=== PATIENT | female | born 1960 | race Caucasian/White ===

== ENCOUNTER 2022-01-13 11:58 | Inpatient (IN) | payer MEDICARE, OTHER ==
[~2022-01-13] VITALS: Ht 165.1 cm; Wt 94.3 kg
[2022-01-13] MEDS ORDERED: FAMOTIDINE40 MG PO (16:09)
[2022-01-13] MEDS ORDERED: AMITRIPTYLINE H25 MG PO (16:09)
[2022-01-13] MEDS ORDERED: GABAPENTIN100 MG PO (16:09)
[2022-01-13] MEDS ORDERED: ATORVASTATIN CA80 MG PO (16:09)
[2022-01-13] MEDS ORDERED: PROTONIX 40 MG40 M1 PO (16:10)
[2022-01-13] MEDS ORDERED: FUROSEMIDE80 MG PO (16:10)
[2022-01-13] MEDS ORDERED: DULOXETINE HCL30 MG PO (16:10)
[2022-01-13] MEDS ORDERED: POTASSIUM CHLO20 ME2 PO (16:10)
[2022-01-13] MEDS ORDERED: XARELTO20 MG PO (16:11)
[2022-01-13] MEDS ORDERED: NITROGLYCERIN0.4 MG SL (16:11)
[2022-01-13] MEDS ORDERED: METOPROLOL SUC100 MG PO (16:11)
[2022-01-13] MEDS ORDERED: FLUOXETINE HCL40 MG PO (16:11)
[2022-01-13] MEDS ORDERED: ASPIRIN EC81 MG PO (16:12)
[2022-01-13] MEDS ORDERED: MECLIZINE HCL25 MG PO (16:12)
[2022-01-13 16:19] LABS: HEMOGLOBIN 13.3 gm/dl (12.3-15.3); RED BLOOD COUNT 5.4 M/UL (4.00-5.10); WHITE BLOOD COUNT 10.8 K/UL (4.5-11.0)
[2022-01-14 07:28] LABS: HEMOGLOBIN 11.9 gm/dl (12.3-15.3); RED BLOOD COUNT 4.95 M/UL (4.00-5.10); WHITE BLOOD COUNT 9.4 K/UL (4.5-11.0)
[2022-01-14 16:32] LABS: HEMOGLOBIN 10.2 gm/dl (12.3-15.3)
[2022-01-14 16:37] LABS: RED BLOOD COUNT 4.18 M/UL (4.00-5.10); WHITE BLOOD COUNT 14.1 K/UL (4.5-11.0)
[2022-01-15 05:24] LABS: WHITE BLOOD COUNT 12.3 K/UL (4.5-11.0)
[2022-01-15 05:31] LABS: HEMOGLOBIN 7.7 gm/dl (12.3-15.3); RED BLOOD COUNT 3.12 M/UL (4.00-5.10)
[2022-01-15 05:43] LABS: BUN/CREATININE RATIO 22 (0-10)
--- NOTE | 2022-01-15 14:21 | NUR ---
PT SITTING IN CHAIR PER PT. REQUESTS TO RETURN TO BED AND ATTEMPTED TO GET OUT OF CHAIR INDEPENDENTLY. DISTANCE EDUCATION FACULTY LIAISON INSTRUCTED PT TO WAIT FOR ASST AND PLACED WALKER IN FRONT OF PT. PT STOOD WITH ASST OF DISTANCE EDUCATION FACULTY LIAISON AND WALKER THEN C/O DIZZINESS AND WAS SLID TO FLOOR BY DISTANCE EDUCATION FACULTY LIAISON. [place] [facility] [place] [place]OM, GAIT BELT APPLIED AND PT ASST FROM SITTING POSITION IN FLOOR TO THE CHAIR. PT THEN TRANSFERRED FROM CHAIR TO BED WITH GAIT BELT. PT ALERT AND ORIENTED AND STATED THAT SHE HAS HAD MULTIPLE EPISODES OF DIZZINESS AT HOME. DENIES ANY PAIN OR DISCOMFORT AT PRESENT. NOTIFIED. V/S - HR 76, R 18, O2 SAT ON R/A 94%. B/P 108/45.
[2022-01-16 04:52] LABS: RED BLOOD COUNT 3.07 M/UL (4.00-5.10); WHITE BLOOD COUNT 11.3 K/UL (4.5-11.0)
[2022-01-16 05:12] LABS: BUN/CREATININE RATIO 22 (0-10)
[2022-01-17 05:17] LABS: RED BLOOD COUNT 2.99 M/UL (4.00-5.10); WHITE BLOOD COUNT 9.5 K/UL (4.5-11.0)
[2022-01-17 05:31] LABS: BUN/CREATININE RATIO 20 (0-10)
[2022-01-18 03:52] LABS: HEMOGLOBIN 7.8 gm/dl (12.3-15.3); RED BLOOD COUNT 2.98 M/UL (4.00-5.10); WHITE BLOOD COUNT 8.6 K/UL (4.5-11.0)
[2022-01-18 04:15] LABS: BUN/CREATININE RATIO 23 (0-10)
[2022-01-19 03:12] LABS: BUN/CREATININE RATIO 19 (0-10)
[2022-01-19 03:39] LABS: HEMOGLOBIN 7.6 gm/dl (12.3-15.3); RED BLOOD COUNT 2.95 M/UL (4.00-5.10); WHITE BLOOD COUNT 8.3 K/UL (4.5-11.0)
[2022-01-20 04:52] LABS: HEMOGLOBIN 8.1 gm/dl (12.3-15.3); RED BLOOD COUNT 3.08 M/UL (4.00-5.10); WHITE BLOOD COUNT 8.5 K/UL (4.5-11.0)
[2022-01-20] MEDS ORDERED: ROXICODONE TAB 55 MG PO (12:26)
[2022-01-20] MEDS ORDERED: STIMULANT LAXA1 EACH PO (12:26)
[2022-01-20] MEDS ORDERED: ATORVASTATIN CA20 MG PO (12:26)
[2022-01-20] MEDS ORDERED: POLYETHYLENE GL17 GM PO (12:26)
[2022-01-20] MEDS ORDERED: IPRAT-ALBUT 0.5-3 ML NEB (12:26)
[2022-01-20] MEDS ORDERED: ACETAMINOPHEN500 MG PO (12:26)
[2022-01-20] MEDS ORDERED: GABAPENTIN300 MG PO (12:26)
[2022-01-20] MEDS ORDERED: HUMALOG 10100 UNITS/ SC (12:37)
[2022-01-20] MEDS ORDERED: LANTUS INS100 UTS/M1 SQ (12:37)
== END 2022-01-20 16:00 | DRG 480 ==
LOC: CCU 15:20
PROVIDERS: Internal Medicine; Orthopaedic Surgery; ADMIT Internal Medicine
PROC: B24BZZZ Ultrasonography of Heart with Aorta (ICD-10-PCS; 2022-01-14)
PROC: 0QS706Z Reposition Left Upper Femur with Intramedullary Internal Fixation Device, Open Approach (ICD-10-PCS; principal; 2022-01-14 14:30)
PROC: 30233N1 Transfusion of Nonautologous Red Blood Cells into Peripheral Vein, Percutaneous Approach (ICD-10-PCS; 2022-01-15)
DX: S72.142A Displaced intertrochanteric fracture of left femur, initial encounter for closed fracture (principal); J96.01 Acute respiratory failure with hypoxia; D62 Acute posthemorrhagic anemia; Z20.822 Contact with and (suspected) exposure to COVID-19; M21.372 Foot drop, left foot; E11.9 Type 2 diabetes mellitus without complications; R33.9 Retention of urine, unspecified; I10 Essential (primary) hypertension; W18.30XA Fall on same level, unspecified, initial encounter; I25.10 Atherosclerotic heart disease of native coronary artery without angina pectoris; E83.42 Hypomagnesemia; K21.9 Gastro-esophageal reflux disease without esophagitis; E78.5 Hyperlipidemia, unspecified; I48.0 Paroxysmal atrial fibrillation; I08.3 Combined rheumatic disorders of mitral, aortic and tricuspid valves; Z79.01 Long term (current) use of anticoagulants; Z79.4 Long term (current) use of insulin; Z98.891 History of uterine scar from previous surgery; I25.2 Old myocardial infarction; Z87.891 Personal history of nicotine dependence; Z90.710 Acquired absence of both cervix and uterus
CPT/HCPCS: ECHO; 36415; 36430; 71045; 72170; 73502; 73552; 76000; 80048; 80053; 80061; 81001; 82550; 82553; 82607; 82962; 83036; 83540; 83550; 83605; 83735; 83880; 84439; 84443; 84484; 85018; 85025; 85027; 85610; 85652; 86140; 86850; 86900; 86901; 86920; 87040; 87086; 93005; 93306; 94760; 97110; 97110-GP-CQ; 97116-GP-CQ; 97163; 97165; 97530; 97530-GP-CQ; C1713; J0690; J1100; J2001; J2250; J2270; J2370; J2405; J2704; J2795; J3010; J3475; P9016; U0002